=== PATIENT | male | born 1975 | race Caucasian/White ===

== ENCOUNTER 2016-10-18 20:02 | Emergency (ER) | payer OTHER ==
[2016-10-18 20:18] VITALS: TEMP 98.1; O2SAT 98
[2016-10-18] MEDS ORDERED: AMOXICILLIN/CLAVULANATE POT 875/125 MG TAB PO ONE (21:02)
--- NOTE | 2016-10-18 21:07 | UCPHY ---
H & P Time Seen by Provider: 10/18/16 20:16 Patient Type: New HPI/ROS: This patient describes cold 2 weeks ago with fevers that resolved but over the past 2 days he has developed pain to the left soft palate extending to the left posterior throat. He also has a pressure feeling just left of his nose/ maxillary sinus region. He describes the pain as 5/10 intensity. He has partial relief from ibuprofen and Tylenol without other exacerbating or alleviating factors. ROS: No recent fevers or chills. HEENT: No recent dental procedures. No ear pain. He does not have feeling of nasal congestion at this point. His throat pain is mildly is no difficulty swallowing food. Neuro: No generalized headache. No confusion. No neck stiffness. Pulmonary: No cough. 10 point ROS is otherwise negative. Past Medical/Surgical History: The patient has on epididymitis that required hospitalization in 2012 and he contracted C diff colitis. This was after IV Rocephin another antibiotic the patient is uncertain of. Otherwise healthy Social History: Occasional beer drinker No drug use Smoking Status: Never smoked Physical Exam: Physical Exam Vital signs are normal. General: No acute distress HEENT: Nose: No swelling to the nasal turbinates or purulent discharge. No sinus tenderness to percussion. Oropharynx: No dental tenderness to percussion in the left upper teeth. There is a cap tooth-left posterior molar there is area of erythema 1 cm medial to the left posterior molar in the soft palate that extends to the left posterior pharynx. There is minimal edema associated with but no significant swelling no fluctuant areas. No lower tooth tenderness. No dysphonia drooling or stridor. No tonsillar swelling. Ears: External canals and tympanic membranes are clear with no erythema or abnormal findings bilaterally. No drooling or stridor. No submental swelling Eyes: Pupils equal and react to light. Extraocular motions are intact. Neck: Supple no significant anterior cervical lymphadenopathy Lungs: Clear to auscultation bilaterally with no rales, rhonchi or wheeze. No respiratory distress. Cardiac: Regular rate and rhythm with no murmur gallop or rub Skin: No rash or pallor. Neuro: Alert with no focal deficits noted. Initial differential diagnosis: Periodontal abscess, maxillary sinusitis, pharyngitis, mouth lesion with infection Constitutional: Initial Vital Signs Temperature (C) 36.7 C 10/18/16 20:16 Heart Rate 65 10/18/16 20:16 Respiratory Rate 20 10/18/16 20:16 Blood Pressure 169/93 H 10/18/16 20:16 O2 Sat (%) 98 10/18/16 20:16 O2 Delivery Mode Room Air Allergies/Adverse Reactions: No Known Allergies Allergy (Verified 10/18/16 20:14) Home Medications: Medication Instructions Recorded Amox Tr/K Clav (Augmentin) 500 mg PO TID #21 tab 10/18/16 [Augmentin 500/125 MG TAB (*)] Medical Decision Making ED Course/Re-evaluation: Rapid strep is negative Treated the patient with 1st dose of Augmentin and will continue Augmentin Counseled him regarding the importance of yogurt or probiotic to prevent diarrhea He will follow up with oral surgeon or ENT for any ongoing symptoms despite treatment plan - Data Points Laboratory Results: 10/18/16 10/18/16 Unknown 20:29 Group A Strep Screen NEGATIVE (NEGATIVE) Group A Strep DNA Pending Medications Given: Discontinued Medications Amoxicillin/Clavulanate Potassium (Augmentin 875mg) 875 mg PO EDNOW ONE PRN Reason: Protocol Stop: 10/18/16 21:03 Last Admin: 10/18/16 21:20 Dose: 875 mg Ibuprofen (Motrin) 600 mg PO EDNOW ONE Stop: 10/18/16 21:13 Last Admin: 10/18/16 21:20 Dose: 600 mg Departure - Departure Disposition: Home, Routine, Self-Care Clinical Impression: Lesion of mouth Pharyngitis Qualifiers: Pharyngitis/tonsillitis etiology: unspecified etiology Qualified Code(s): J02.9 - Acute pharyngitis, unspecified Condition: Good Instructions: Pharyngitis (ED) Additional Instructions: Diagnoses: 1. Pharyngitis 2. Oral lesion-soft palate Plan: Augmentin antibiotic Ibuprofen Tylenol for discomfort if needed Take a probiotic and yogurt to prevent diarrhea while on the antibiotic. Follow up with the oral surgeon (Dr. Rapp) or ear, nose throat physician listed below if you have ongoing symptoms despite the treatment plan Referrals: Machelle Smith MD [Primary Care Provider] - As per Instructions Ortiz Rapp DDS [Doctor of Dental Surgery] - As per Instructions Ambrose Tovar MD [Medical Doctor] - As per Instructions Prescriptions: Amox Tr/K Clav (Augmentin) [Augmentin 500/125 MG TAB (*)] 500 mg PO TID #21 tab - PQRS PQRS Measurement: NA
[2016-10-18] MEDS ORDERED: IBUPROFEN 200 MG TAB PO ONE (21:12)
[2016-10-18] MEDS ORDERED: IBUPROFEN 600 MG TAB PO ONE (21:23)
[2016-10-18 21:30] VITALS: BP 145/95; PULSE 66; RESP 15
== END 2016-10-18 21:27 | disposition home or self-care (01) ==
LOC: CED 20:02
DX: J02.9 Acute pharyngitis, unspecified (principal); K13.79 Other lesions of oral mucosa
CPT/HCPCS: 87880-PO; 99203-PO; G0463-PO